=== PATIENT | male | born 1925 | race Caucasian/White ===

== ENCOUNTER 2017-06-12 14:29 | Observation (INO) | payer MEDICARE, BC ==
[2017-06-12] MEDS: ASPIRIN 325 MG TAB PO (16:31)
[2017-06-12 16:36] LABS: ADD MAN DIFF? NO
[2017-06-12 16:39] LABS: WHITE BLOOD COUNT 5.6 10^3/ul (4.8-10.8)
[2017-06-12 16:39] LABS: BASOPHILS % 0.5 % (0.0-2.0); EOSINOPHILS # 0.1 10^3/ul (0.0-0.5); EOSINOPHILS % 1.2 % (0.0-7.0); HEMATOCRIT 43.5 % (42.0-52.0); HEMOGLOBIN 14.6 g/dl (14.0-18.0); LYMPHOCYTES # 1.4 10^3/ul (0.8-2.9); LYMPHOCYTES % 24.6 % (15.0-51.0); MEAN CORPUSCULAR HEMOGLOBIN 32.3 pg (29.0-33.0); MEAN CORPUSCULAR HGB CONC 33.6 g/dl (32.0-37.0); MEAN CORPUSCULAR VOLUME 96.2 fl (82.0-101.0); MONOCYTE # 0.5 10^3/ul (0.3-0.9); MONOCYTES % 8.7 % (0.0-11.0); NEUTROPHIL # 3.6 10^3/ul (1.6-7.5); NEUTROPHILS % 64.6 % (39.0-77.0); PLATELET COUNT 207 10^3/UL (140-415); RED BLOOD COUNT 4.52 10^6/ul (4.70-6.10); RED CELL DISTRIBUTION WIDTH 12.6 % (11.5-14.5)
[2017-06-12 16:58] LABS: INR 0.95; PROTIME 12.8 Sec (11.9-14.9)
[2017-06-12 16:59] LABS: PARTIAL THROMBOPLASTIN TIME 29.6 Sec (25.0-35.0)
[2017-06-12 17:01] LABS: ANION GAP 15 (8-16); BLOOD UREA NITROGEN 27 mg/dl (7-20); CALCIUM 9.4 mg/dl (8.4-10.2); CARBON DIOXIDE 29 mmol/L (21-31); CHLORIDE 104 mmol/L (97-110); CREATININE 1.03 mg/dl (0.61-1.24); GLUCOSE 145 mg/dl (70-220); POTASSIUM 4.8 mmol/L (3.5-5.1); SODIUM 143 mmol/L (135-144)
[2017-06-12 17:13] LABS: B-TYPE NATRIURETIC PEPTIDE 83 PG/ML (0-450)
[2017-06-12 17:17] LABS: TROPONIN-I < 0.012 ng/ml (0.00-0.12)
[2017-06-12] MEDS ORDERED: ACETAMINOPHEN 325 MG TAB PO ×2 (19:30→22:30)
[2017-06-12] MEDS ORDERED: ONDANSETRON 4 MG INJ IV ×2 (19:30→22:30)
[2017-06-12] MEDS: ATORVASTATIN 20 MG TAB PO (22:19)
[2017-06-12] MEDS: traZODone 50 MG TAB PO (22:19)
[2017-06-12] MEDS ORDERED: ALBUTEROL/IPRATROPIUM (NEB) 3 ML AMP HHN (22:30)
[2017-06-12] MEDS ORDERED: NACL 0.9% 3 ML SYG IV (22:30)
[2017-06-12] MEDS ORDERED: NITROGLYCERIN (SL) 0.4 MG TAB SL (22:30)
[2017-06-12] MEDS ORDERED: morphine 2 MG INJ IV (22:30)
[2017-06-12 22:34] LABS: CREATINE KINASE 32 IU/L (23-200)
[2017-06-12 22:46] LABS: CK INDEX 6.2; TROPONIN-I 0.013 ng/ml (0.00-0.12)
[2017-06-12 22:47] LABS: CK-MB 1.97 ng/ml (0.0-2.4)
[2017-06-13] MEDS: PANTOPRAZOLE (EC) 40 MG TAB PO (08:19)
[2017-06-13] MEDS: ASPIRIN (EC) 81 MG TAB PO (08:19)
[2017-06-13] MEDS: MULTIVITAMINS THERAPEUTIC TAB PO (08:19)
[2017-06-13] MEDS: CHOLECALCIFEROL 2,000 UNIT CAP PO (08:19)
[2017-06-13] MEDS: CLOPIDOGREL 75 MG TAB PO (08:19)
[2017-06-13] MEDS: LISINOPRIL 5 MG TAB PO (08:20)
[2017-06-13 08:27] LABS: ADD MAN DIFF? NO
[2017-06-13 08:36] LABS: WHITE BLOOD COUNT 5.9 10^3/ul (4.8-10.8)
[2017-06-13 08:36] LABS: BASOPHILS % 0.5 % (0.0-2.0); EOSINOPHILS # 0.1 10^3/ul (0.0-0.5); EOSINOPHILS % 1.2 % (0.0-7.0); HEMATOCRIT 42.3 % (42.0-52.0); HEMOGLOBIN 14.2 g/dl (14.0-18.0); LYMPHOCYTES # 1.3 10^3/ul (0.8-2.9); LYMPHOCYTES % 22.7 % (15.0-51.0); MEAN CORPUSCULAR HEMOGLOBIN 32.3 pg (29.0-33.0); MEAN CORPUSCULAR HGB CONC 33.6 g/dl (32.0-37.0); MEAN CORPUSCULAR VOLUME 96.4 fl (82.0-101.0); MEAN PLATELET VOLUME 9.5 fl (7.4-10.4); MONOCYTE # 0.6 10^3/ul (0.3-0.9); MONOCYTES % 10.3 % (0.0-11.0); NEUTROPHIL # 3.8 10^3/ul (1.6-7.5); PLATELET COUNT 189 10^3/UL (140-415); RED BLOOD COUNT 4.39 10^6/ul (4.70-6.10); RED CELL DISTRIBUTION WIDTH 12.5 % (11.5-14.5)
[2017-06-13 08:57] LABS: CREATINE KINASE 33 IU/L (23-200)
[2017-06-13 09:05] LABS: ALANINE AMINOTRANSFERASE 27 IU/L (13-69); ALBUMIN 3.7 g/dl (3.3-4.9); ALBUMIN/GLOBULIN RATIO 1.42; ALKALINE PHOSPHATASE 90 IU/L (42-121); ANION GAP 15 (8-16); ASPARTATE AMINO TRANSFERASE 21 IU/L (15-46); BILIRUBIN,INDIRECT 0.6 mg/dl (0-1.1); BILIRUBIN,TOTAL 0.6 mg/dl (0.2-1.3); BLOOD UREA NITROGEN 25 mg/dl (7-20); CALCIUM 9.5 mg/dl (8.4-10.2); CARBON DIOXIDE 29 mmol/L (21-31); CHLORIDE 104 mmol/L (97-110); CHOLESTEROL 114 mg/dl (100-200); GLUCOSE 106 mg/dl (70-220); HDL CHOLESTEROL 37 mg/dl (31-75); LDL CHOLESTEROL,CALCULATED 47 mg/dl; MAGNESIUM 1.8 mg/dl (1.7-2.5); POTASSIUM 4.9 mmol/L (3.5-5.1); SODIUM 143 mmol/L (135-144); TOTAL PROTEIN 6.3 g/dl (6.1-8.1); TRIGLYCERIDES 149 mg/dl (0-149)
[2017-06-13 09:06] LABS: CK INDEX 5.1
[2017-06-13 09:07] LABS: CK-MB 1.67 ng/ml (0.0-2.4); TROPONIN-I < 0.012 ng/ml (0.00-0.12)
[2017-06-13 09:27] LABS: HEMOGLOBIN A1C 5.7 % (0-5.9)
[2017-06-13] MEDS: ATORVASTATIN 20 MG TAB PO ×2 (21:00→21:06)
[2017-06-13] MEDS: traZODone 50 MG TAB PO ×2 (21:00→21:06)
[2017-06-14] MEDS: MULTIVITAMINS THERAPEUTIC TAB PO (08:23)
[2017-06-14] MEDS: CHOLECALCIFEROL 2,000 UNIT CAP PO (08:23)
[2017-06-14] MEDS: PANTOPRAZOLE (EC) 40 MG TAB PO (08:23)
[2017-06-14] MEDS: CLOPIDOGREL 75 MG TAB PO (08:23)
[2017-06-14] MEDS: ASPIRIN (EC) 81 MG TAB PO (08:23)
[2017-06-14] MEDS: LISINOPRIL 5 MG TAB PO (08:26)
[2017-06-14 08:35] LABS: ADD MAN DIFF? NO
[2017-06-14 08:44] LABS: WHITE BLOOD COUNT 5.6 10^3/ul (4.8-10.8)
[2017-06-14 08:44] LABS: BASOPHILS % 0.7 % (0.0-2.0); EOSINOPHILS # 0.1 10^3/ul (0.0-0.5); EOSINOPHILS % 1.8 % (0.0-7.0); HEMATOCRIT 46.6 % (42.0-52.0); HEMOGLOBIN 15.6 g/dl (14.0-18.0); LYMPHOCYTES # 1.5 10^3/ul (0.8-2.9); MEAN CORPUSCULAR HEMOGLOBIN 32.2 pg (29.0-33.0); MEAN CORPUSCULAR HGB CONC 33.5 g/dl (32.0-37.0); MEAN CORPUSCULAR VOLUME 96.3 fl (82.0-101.0); MEAN PLATELET VOLUME 9.9 fl (7.4-10.4); MONOCYTE # 0.7 10^3/ul (0.3-0.9); NEUTROPHIL # 3.3 10^3/ul (1.6-7.5); NEUTROPHILS % 59.1 % (39.0-77.0); PLATELET COUNT 193 10^3/UL (140-415); RED BLOOD COUNT 4.84 10^6/ul (4.70-6.10); RED CELL DISTRIBUTION WIDTH 12.7 % (11.5-14.5)
[2017-06-14 09:10] LABS: ANION GAP 15 (8-16); BLOOD UREA NITROGEN 21 mg/dl (7-20); CALCIUM 9.5 mg/dl (8.4-10.2); CARBON DIOXIDE 28 mmol/L (21-31); CHLORIDE 105 mmol/L (97-110); CREATININE 0.97 mg/dl (0.61-1.24); GLUCOSE 106 mg/dl (70-220); MAGNESIUM 1.9 mg/dl (1.7-2.5); POTASSIUM 4.5 mmol/L (3.5-5.1); SODIUM 143 mmol/L (135-144)
[2017-06-14] MEDS: REGADENOSON 0.4 MG/5 ML SYG (11:55)
== END 2017-06-14 17:49 | disposition home or self-care (01) ==
LOC: E/R 14:29 → TEL 19:01
DX: R07.9 Chest pain, unspecified (principal); I10 Essential (primary) hypertension; E78.5 Hyperlipidemia, unspecified; I25.10 Atherosclerotic heart disease of native coronary artery without angina pectoris; Z95.5 Presence of coronary angioplasty implant and graft; G47.00 Insomnia, unspecified; Z79.82 Long term (current) use of aspirin; Z88.1 Allergy status to other antibiotic agents; Z88.0 Allergy status to penicillin; Z82.49 Family history of ischemic heart disease and other diseases of the circulatory system
CPT/HCPCS: 36415; 71045; 78452; 80048; 80053; 80061; 82550; 82553; 83036; 83735; 83880; 84443; 84484; 85025; 85610; 85730; 93005; 93017; 93306; 99285-25; G0378